=== PATIENT | female | born 1995 | race American Indian/Alaskan Native ===

== ENCOUNTER 2016-04-28 15:43 | Outpatient (CLI) | payer OTHER, MEDICAID ==
[2016-04-28 17:08] VITALS: BP 113/62
== END 2016-04-28 17:52 | disposition home or self-care (01) ==
LOC: TRG 15:43
PROVIDERS: ATTEND Obstetrics & Gynecology
DX: O77.9 Labor and delivery complicated by fetal stress, unspecified (principal); O47.9 False labor, unspecified; Z3A.00 Weeks of gestation of pregnancy not specified
CPT/HCPCS: 59025

== ENCOUNTER 2016-04-29 21:38 | Inpatient (IN) | payer OTHER, MEDICAID ==
[2016-04-29] MEDS ORDERED: SUBLIMAZE IV PRN (22:03)
[2016-04-29] MEDS ORDERED: ePHEDrine SULFATE IV PRN (22:03)
[2016-04-29] MEDS ORDERED: BRETHINE SUB-Q PRN (22:03)
[2016-04-29] MEDS ORDERED: MINERAL OIL PO PRN (22:03)
[2016-04-29] MEDS ORDERED: ZOFRAN IV PRN (22:03)
--- NOTE | 2016-04-29 22:11 | History and Physical Report ---
History of Present Illness Date of examination: 04/29/16 Chief complaint: Labor @ 39 weeks History of present illness: EDC Confirmation: 05/03/2016 Past History : 3 Term Births: 1 Premature Births: 0 Living Children: 1 Para: 1 Mult. Births: 0 Prev : 0 Prev. attempt? 0 Aborta: 1 Elect. Ab: 1 Spont. 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 Infection History Hx of STD: chlamydia Personal hx. of genital herpes: no Partner hx. of genital herpes: no Genetic History Congenital Heart Defect: Mom: no Dad: no Trent Disease: Mom: no Dad: no Thalassemia Mom: no Dad: no Neural Tube Defect Mom: no Dad: no Down's Syndrome Mom: no Dad: no Darwin-Sachs Mom: no Dad: no Sickle Cell Disease/Trait Mom: no Dad: no Hemophilia Mom: no Dad: no Muscular Dystrophy Mom: no Dad: no Cystic Fibrosis Mom: no Dad: no Ruby Chorea Mom: no Dad: no Mental Retardation Mom: no Dad: no Fragile X Mom: no Dad: no Other Genetic/Chromosomal Disorder Mom: no Dad: no Child w/other defect Mom: no Dad: no FALSECurrent Allergies (reviewed today): AMOXICILLIN (AMOXICILLIN CAPS) (Critical) Past History Past Medical History: no pertinent history - Obstetrical History Expected Date of Delivery: 05/03/16 Actual Gestation: 39 Week(s) 4 Day(s) : 3 Para: 1 Hx # Term Pregnancies: 1 Number of Pregnancies: 0 Spontaneous Abortions: 0 Induced : 1 Number of Living Children: 1 Medications and Allergies Allergies Allergy/AdvReac Type Severity Reaction Status Date / Time Penicillins Allergy Rash Verified 11/01/13 01:40 Home Medications Medication Instructions Recorded Confirmed Last Taken Type Nitrofurantoin Sargent/M-Cryst 100 mg PO Q12HR #20 capsule 11/30/13 04/29/16 Unknown Rx [Macrobid] Vit#96/Ferrous Fum/FA 1 tab PO DAILY 05/22/14 04/29/16 05/20/14 10:00 History [ Tablet] 1 tab Review of Systems All systems: negative - Vital Signs Vital signs: Vital Signs Pulse Pulse Ox 92 H 98 04/28/16 17:49 04/28/16 17:49 Temp Pulse Resp BP Pulse Ox 93 H 135/66 97 04/29/16 21:52 04/29/16 21:52 04/28/16 17:53 - Physical Exam Breasts: Positive: normal Cardiovascular: Regular rate Lungs: Positive: Clear to auscultation, Normal air movement Abdomen: Positive: normal appearance, soft Genitourinary (Female): Positive: normal external genitalia, normal perenium Vulva: both: normal Vagina: Positive: normal moisture Uterus: Positive: normal size, normal contour Anus/Rectum: Positive: normal perianal skin Extremities: Positive: normal Deep Tendon Reflex Grade: Normal +2 - Obstetrical FHR: category 1 Uterine Contraction Monitor Mode: External Cervical Dilatation: 7 Cervical Effacement Percentage: 100 station: 0 Uterine Contraction Frequency (min): 3-4 Uterine Contraction Duration: 50-60 Uterine Contraction Pattern: Regular Uterine Tone Measurement Phase: Contraction Uterine Contraction Intensity: Strong/Firm Results Result Diagrams: 04/29/16 22:19 All other labs normal. Laboratory Data-Patient Name: JULISSA SHAFER Test Date Result Blood Type 10/22/2015 O Rh 10/22/2015 Positive Antibody Screen Rubella 10/22/2015 Serology (RPR) 04/01/2016 HBsAg 10/22/2015 Negative Hemoglobin 01/28/2016 11.6 Hematocrit 01/28/2016 35.9 Platelets 10/22/2015 343 [id number]/UL Chlamydia DNA 04/01/2016 Positive GC DNA/Culture 04/01/2016 Urine Culture 10/22/2015 Final report Group B Strep cult POSITIVE PAP HIV 04/01/2016 AFP/Quad Screen Glucola Test 3hr GTT (Fasting) 1 hr 2 hr 3 hr [facility]-Patient Name:JULISSA SHAFER Test Date Result Varicella Ab Sickle Cell 10/22/2015 Negative PPD Fibronectin Cystic Fibrosis Parvovirus TSH Free T4 Hepatitis C ALT AST Uric Acid Creatinine 24 hr Urine Protein RUSS Assessment and Plan Patient breathing through ctx, desires natural at this time. AROM - clear , /0, vertex. unlikely to get 2 doses of antibiotics. - Patient Problems (1) 39 weeks gestation of Current Visit: No Status: Acute (2) Active labor at term Current Visit: No Status: Acute (3) Group B Streptococcus carrier, antepartum Current Visit: No Status: Acute Plan to address problem: GBS is resistant to clinda, susceptible to vanc.
[2016-04-29] MEDS ORDERED: PITOCin/NS 20 UNIT/1000ML DRIP 1,000 ML IV SCH (23:00)
[2016-04-29] MEDS: LACTATED RINGERS 1,000 ML IV SCH (23:00)
[2016-04-29 23:28] LABS: Hematocrit 34.1 % (30.3-42.9); Hemoglobin 11.1 gm/dl (10.1-14.3); Mean Corpuscular HGB Conc 32 % (30-34); Mean Corpuscular Hemoglobin 26 pg (28-32); Mean Corpuscular Volume 82 fl (79-97); Platelet Count 276 K/mm3 (140-440); Red Blood Count 4.19 M/mm3 (3.65-5.03); Red Cell Distribution Width 15.1 % (13.2-15.2); White Blood Count 12.2 K/mm3 (4.5-11.0)
[2016-04-29] MEDS: VANCOMYCIN/NS 1 GM/250 ML 250 ML IV SCH ×2 (23:50→23:51)
[2016-04-30] MEDS: LACTATED RINGERS 1,000 ML IV SCH (00:50)
[2016-04-30] MEDS ORDERED: NARCAN 2 MG/2 ML IV PRN (00:57)
[2016-04-30] MEDS ORDERED: ePHEDrine SULFATE IV PRN (00:57)
--- NOTE | 2016-04-30 00:57 | Anesthesia Consultation ---
Anesthesia Consult and Med Hx Date of service: 04/30/16 - Airway Anesthetic Teeth Evaluation: Good ROM Head & Neck: Adequate Mental/Hyoid Distance: Adequate Mallampati Class: Class II Intubation Access Assessment: Probably Good - Pulmonary Exam CTA: Yes - Cardiac Exam Cardiac Exam: RRR - Pre-Operative Health Status ASA Pre-Surgery Classification: ASA2 Proposed Anesthetic Plan: Epidural - Pulmonary Hx Asthma: No COPD: No Hx Pneumonia: No - Cardiovascular System Hx Hypertension: No - Central Nervous System Hx Seizures: No Hx Psychiatric Problems: No - Endocrine Hx Renal Disease: No Hx End Stage Renal Disease: No Hx Hypothyroidism: No Hx Hyperthyroidism: No - Hematic Hx Anemia: No Hx Sickle Cell Disease: No - Other Systems Hx Alcohol Use: No
[2016-04-30] MEDS ORDERED: fentaNYL-BUPIV 2 MCG/ML-0.125% 100 ML EPIDURAL SCH (01:00)
[2016-04-30] MEDS ORDERED: PITOCin/NS 30 UNIT/500ML 500 ML IV SCH (03:00)
--- NOTE | 2016-04-30 03:41 | Procedure Note ---
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 Infant stimulated and placed on mother's abdomen. 3 vessel cord clamped and cut, Significant cleft lip and palate noted, NICU at to assess. cord blood collected. Placenta del intact and complete. perineum intact. lochia scant, fundus firm. taken to NICU , wt 7#12oz, Apgars 8/9. EBL 300. Mother remains stable. reviewed with patient and family steps taken to resolve shoulder dystocia, infant moving both arms with equal grasps. All parties verbalize understanding. - Infant A at 1 minute: 8 at 5 minutes: 9 Infant Gender: Male (7#12)
[2016-04-30] MEDS ORDERED: VITAMIN K *NICU ONE (03:56)
[2016-04-30] MEDS ORDERED: ERYTHROMYCIN OPHTH OINT ONE (03:57)
[2016-04-30] MEDS ORDERED: NORCO 5/325 PO PRN (14:42)
[2016-04-30] MEDS ORDERED: PITOCin/NS 20 UNIT/1000ML DRIP 20 UNIT/1,000 ML BAG IV SCH (14:42)
[2016-04-30] MEDS ORDERED: MILK OF MAGNESIA PO PRN (14:42)
[2016-04-30] MEDS ORDERED: DERMOPLAST TP PRN (14:42)
[2016-04-30] MEDS ORDERED: TYLENOL PO PRN (14:42)
[2016-04-30] MEDS ORDERED: SODIUM CHLORIDE FLUSH SYRINGE 10 ML IV NR (14:42)
[2016-04-30] MEDS ORDERED: PHENERGAN PO PRN (14:42)
[2016-04-30] MEDS ORDERED: LANSINOH TP PRN (14:42)
[2016-04-30] MEDS ORDERED: DULCOLAX PR PRN (14:42)
[2016-04-30] MEDS ORDERED: BENADRYL PO PRN (14:42)
[2016-04-30] MEDS ORDERED: TUCKS PAD TP PRN (14:42)
[2016-04-30] MEDS: MOTRIN PO SCH (22:06)
[2016-04-30] MEDS: COLACE PO SCH (22:06)
[2016-04-30 23:01] LABS: Hematocrit 29.3 % (30.3-42.9); Hemoglobin 9.4 gm/dl (10.1-14.3)
[2016-05-01] MEDS ORDERED: BOOSTRIX IM ONE ×2 (03:33→06:00)
--- NOTE | 2016-05-01 06:39 | Progress Note ---
Assessment and Plan - Patient Problems (1) Spontaneous vaginal delivery Onset Date: ~04/30/16 Current Visit: Yes Status: Acute Plan to address problem: Pt emotional this morning Voicing concern @ NB who is in NICU Cleft lip/palet. VSS FF below umb Lochia small Perineum intact H&H 9.4/29.3 anemia due to blood loss from delivery Pt w/o s/sx of anemia. Doing well s/p vaginal delivery. NB remains in NICU stable. P: continue pathway Will offer [place] services/education @ NB care What ever is requested by pt. Subjective - Subjective Date of service: 05/01/16 (Pt teary Concerned @ NB in NICU Cleft lip) Patient reports: appetite normal, voiding normally, pain well controlled, ambulating normally [place]: in NICU Objective - Vital Signs Latest vital signs: Vital Signs Temp Pulse Resp BP BP Pulse Ox 05/01/16 00:00 98.4 F 20 106/63 04/30/16 19:04 98.5 F 20 102/59 04/30/16 12:09 98 F 20 108/63 04/30/16 09:28 66 99 04/30/16 09:23 63 100 04/30/16 09:18 72 99 04/30/16 09:12 60 99 04/30/16 09:07 64 97 04/30/16 09:02 63 98 04/30/16 08:57 69 98 04/30/16 08:55 70 126/70 04/30/16 08:02 98.6 F 20 102/55 Intake and Output 04/30/16 04/30/16 05/01/16 14:59 22:59 06:59 Intake Total 600 240 240 Balance 600 240 240 Intake: Oral 600 240 240 Other: Total, Intake Amount 120 240 240 # Voids Void 400 1 1 - Exam Breasts: Present: Cardiovascular: Present: Regular rate Lungs: Present: Normal air movement Abdomen: Present: normal appearance, soft Vulva: both: normal Uterus: Present: normal, fundal height below umbilicus Extremities: Present: normal Deep Tendon Reflex Grade: Normal +2 Incision: Present: normal, dry, intact Comments: perineum intact; no laceration - Labs Labs: Abnormal lab results 04/30/16 Range/Units 22:30 Hgb 9.4 L (10.1-14.3) gm/dl Hct 29.3 L (30.3-42.9) %
[2016-05-01] MEDS: MOTRIN PO SCH ×2 (06:54→18:45)
--- NOTE | 2016-05-01 12:45 | Progress Note ---
Subjective Date of service: 05/01/16 Interval history: 1st day after normal vaginal delivery Patient is comfortable. Pain is controlled with pain meds. Ambulated well. No residual neurological deficit. No nausea or vomiting. No anesthesia complications Objective - Constitutional Vitals: Vital Signs - 12hr 05/01/16 08:30 Temperature 98.2 F Pulse Rate [ 60 From Monitor] Respiratory 18 Rate Blood Pressure 108/54 [Right Arm] - Labs CBC & Chem 7: 04/30/16 22:30 Labs: Abnormal lab results 04/30/16 Range/Units 22:30 Hgb 9.4 L (10.1-14.3) gm/dl Hct 29.3 L (30.3-42.9) %
[2016-05-01] MEDS: PRENATAL VITAMIN PO SCH (17:16)
[2016-05-01] MEDS: COLACE PO SCH ×2 (17:17→21:46)
[2016-05-01] MEDS: FEOSOL PO SCH ×2 (17:17→21:46)
[2016-05-02] MEDS: MOTRIN PO SCH ×4 (00:39→17:35)
--- NOTE | 2016-05-02 09:06 | Progress Note ---
Assessment and Plan Patient doing well, no complaints this morning. pt reports is doing well in NICU and she will have to learn how to manage his tube feeding prior to 's discharge. VSSAF, H&H stable. asymptomatic for anemia. Plan for d/c home today. - Patient Problems (1) Group B Streptococcus carrier, antepartum Current Visit: Yes Status: Resolved (2) Active labor at term Current Visit: No Status: Resolved (3) 39 weeks gestation of Current Visit: No Status: Resolved (4) Spontaneous vaginal delivery Onset Date: ~04/30/16 Current Visit: Yes Status: Acute (5) Anemia due to blood loss, acute Current Visit: Yes Status: Acute Plan to address problem: asymptomatic for anemia Subjective - Subjective Date of service: 05/02/16 Principal diagnosis: day #2 s/p Interval history: EDC Confirmation: 05/03/2016 Past History : 3 Term Births: 1 Premature Births: 0 Living Children: 1 Para: 1 Mult. Births: 0 Prev : 0 Prev. attempt? 0 Aborta: 1 Elect. Ab: 1 Spont. 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 Infection History Hx of STD: chlamydia Personal hx. of genital herpes: no Partner hx. of genital herpes: no Genetic History Congenital Heart Defect: Mom: no Dad: no Trent Disease: Mom: no Dad: no Thalassemia Mom: no Dad: no Neural Tube Defect Mom: no Dad: no Down's Syndrome Mom: no Dad: no Darwin-Sachs Mom: no Dad: no Sickle Cell Disease/Trait Mom: no Dad: no Hemophilia Mom: no Dad: no Muscular Dystrophy Mom: no Dad: no Cystic Fibrosis Mom: no Dad: no Ruby Chorea Mom: no Dad: no Mental Retardation Mom: no Dad: no Fragile X Mom: no Dad: no Other Genetic/Chromosomal Disorder Mom: no Dad: no Child w/other defect Mom: no Dad: no FALSECurrent Allergies (reviewed today): AMOXICILLIN (AMOXICILLIN CAPS) (Critical) Patient reports: appetite normal, voiding normally, pain well controlled, ambulating normally, no dizzy ambulation, no nauseated [place]: in NICU Objective - Vital Signs Latest vital signs: Vital Signs Temp Pulse Resp BP 05/02/16 00:00 98.0 F 79 20 105/59 05/01/16 16:34 99.1 F 76 20 110/66 Intake and Output 05/01/16 05/02/16 05/02/16 22:59 06:59 14:59 Intake Total 720 240 Balance 720 240 Intake: Oral 240 Intake, Free Water 720 Other: Total, Intake Amount 240 # Voids Void 1 3 - Exam Breasts: Present: normal Cardiovascular: Present: Regular rate Lungs: Present: Clear to auscultation, Normal air movement Abdomen: Present: normal appearance, soft, normal bowel sounds Vulva: both: normal Uterus: Present: normal, firm Extremities: Present: normal
--- NOTE | 2016-05-02 09:11 | Discharge Summary ---
Providers - Providers Date of Admission: 04/29/16 22:52 Date of discharge: 05/02/16 (requests d/c home today) Attending physician: RADHA WANG Primary care physician: RADHA WANG Hospitalization Reason for admission: active labor Delivery: Episiotomy: none Laceration: none Other procedures: none complications: none Discharge diagnosis: IUP at term delivered [place] baby: male Hospital course: uncomplicated vaginal delivery Condition at discharge: Good Disposition: DISCHARGED TO HOME OR SELFCARE - Discharge Diagnoses (1) Group B Streptococcus carrier, antepartum Status: Resolved Comment: treated x 1 (2) Spontaneous vaginal delivery Status: Acute (3) Anemia due to blood loss, acute Status: Acute Plan - Discharge Medications Prescriptions: Docusate Sodium [Colace] 100 mg PO BID PRN #60 capsule PRN Reason: Constipation Ferrous Sulfate [Feosol 325 MG tab] 325 mg PO BID #60 tablet Ibuprofen [Motrin 800 MG tab] 800 mg PO Q8HR PRN #30 tablet PRN Reason: Pain Lidocain2.5%/Prilocai2.5% [Emla] 5 gm TP ONCE PRN #1 tube PRN Reason: Pain - Provider Discharge Summary Activity: routine, no sex for 6 weeks, no heavy lifting 4 weeks, no strenuous exercise Diet: routine Instructions: routine Additional instructions: [] Smoking cessation referral if applicable(refer to patient education folder for contact #) [] Refer to [facility]'s [facility] Booklet Call your doctor immediately for: * Fever > 100.5 * Heavy vaginal bleeding ( >1 pad per hour) * Severe persistent headache * Shortness of breath * Reddened, hot, painful area to leg or breast * Drainage or odor from incision. * Keep incision clean and dry at all times and follow doctor's instructions regarding bathing/showering - Follow up plan Follow up: RADHA WANG MD [Primary Care Provider] - 7 Days (Congratulations! Please call [phone] to schedule your visit in 4 weeks and your son's circumcision after he is discharged from the NICU, Bring EMLA cream with you to his visit and await further instructions. Call for any questions or concerns. )
[2016-05-02] MEDS: FEOSOL PO SCH (10:04)
[2016-05-02] MEDS: COLACE PO SCH (10:04)
[2016-05-02] MEDS: PRENATAL VITAMIN PO SCH (10:05)
[2016-05-02 18:49] VITALS: BP 115/72
== END 2016-05-02 18:00 | disposition home or self-care (01) | DRG 775 ==
LOC: TRG 21:38 → LD 22:52 → OB 04-30 13:45
PROVIDERS: ADMIT Obstetrics & Gynecology; ATTEND Obstetrics & Gynecology
PROC: 10E0XZZ Delivery of Products of Conception, External Approach (ICD-10-PCS; principal; 2016-04-30)
PROC: 3E0S3CZ (ICD-10-PCS; 2016-04-30)
PROC: 00HU33Z Insertion of Infusion Device into Spinal Canal, Percutaneous Approach (ICD-10-PCS; 2016-04-30)
DX: O99.824 Streptococcus B carrier state complicating childbirth (principal); D62 Acute posthemorrhagic anemia; Z3A.39 39 weeks gestation of pregnancy; Z37.0 Single live birth
CPT/HCPCS: 36415; 85014; 85018; 85027; 86592; 86850; 86900; 86901; 88307; 90471; 90715; 99211; A6250; G0463; J2405; J2590; J3010; J3370; J3430; J7120